=== PATIENT | male | born 1975 | race Caucasian/White ===

== ENCOUNTER → 2016-10-19 08:24 | Outpatient (CLI) | payer MEDICARE ==
--- NOTE | 2016-10-25 07:16 | EEG ---
PATIENT:BRYAN BYERS DATE OF SERVICE: 10/19/16 MEDICAL RECORD: [id number] DATE OF : 71 LOCATION: D.CT ADMISSION DATE: 10/19/16 REFERRING PHYSICIAN: INTERPRETING PHYSICIAN: KD GARCIA MD DATE OF SERVICE: 10/19/2016 Electroencephalographic Report REFERRED BY: Dr. Valenzuela as an outpatient. ELECTROENCEPHALOGRAM NUMBER: [id number] DATE OF EXAMINATION: 10/19/2016 at 10:00 a.m. TECHNICAL DATA: This electroencephalographic recording consisted of approximately 20 minutes of data collection utilizing the international 10/20 system of electrode placement and both referential and non-referential montages. Sixteen channels of electrocerebral recording are accompanied by a 17th channel dedicated to the electrocardiographic rhythm and 2 channels of electromyographic recording. Recording is performed in the awake and drowsy states utilizing activation by hyperventilation and photic stimulation. ELECTROENCEPHALOGRAPHIC DATA: The awake state comprises approximately 70% of the recorded electrocerebral activity. Electromyographic artifact is prominent and rapid eye movements are seen. The posterior dominant background consists of a well-developed, symmetric, rhythmic, waxing and waning alpha activity of 9-10 Hz, which is suppressed by eye opening. The drowsy state comprises the remaining portion of the recorded electrocerebral activity. Electromyographic artifact is diminished and rapid eye movements are not seen. The posterior dominant background is relatively suppressed. Also seen as an irregular, generalized and symmetric 2-3 Hz delta slowing, which occurs for periods of 1-2 seconds approximately once every 2-3 pages. No abnormal or focal slowing is identified. No epileptiform discharges are seen. Hyperventilation and photic stimulation induced no abnormal change in the recorded electrocerebral activity. INTERPRETATION: Normal (awake and drowsy). This is a normal electroencephalographic recording. TRANSINT:[id number] Voice Confirmation ID: [id number] DOCUMENT ID: [id number] ELECTROENCEPHALOGRAM REPORT [id number] BRYAN BYERS KD GARCIA MD at 0716 CC: [id number] DICTATION DATE: 10/20/16 0650 DATA WAREHOUSE ANALYST: 10/20/16 2321 DEP CLI 10/19/16 [place] [address]
== END | disposition home or self-care (01) ==
LOC: D.CT 08:24
DX: R55 Syncope and collapse (principal)

== ENCOUNTER → 2016-10-27 08:07 | Outpatient (CLI) | payer MEDICARE | END | disposition home or self-care (01) | LOC: D.CT 08:07 | DX: M54.12 Radiculopathy, cervical region (principal) ==

== ENCOUNTER → 2016-11-03 08:56 | Outpatient (CLI) | payer MEDICARE ==
[2016-11-04 10:18] LABS: IMMUNOGLOBULIN E 245 IU/mL (0-100)
== END | disposition home or self-care (01) ==
LOC: D.RT 08:56
PROVIDERS: Internal Medicine Pulmonary Disease
DX: J45.909 Unspecified asthma, uncomplicated (principal)

== ENCOUNTER → 2020-11-20 15:56 | Outpatient (CLI) | payer MEDICARE | END | disposition home or self-care (01) | LOC: D.LABREF 15:56 | PROVIDERS: ATTEND Surgery | DX: L02.214 Cutaneous abscess of groin (principal) ==